=== PATIENT | female | born 1980 | race Caucasian/White ===

== ENCOUNTER 2017-05-20 16:36 | Emergency (ER) | payer OTHER ==
[2017-05-20 17:57] VITALS: BP 111/65; PULSE 99; TEMP 98.5; BMI 23.2
--- NOTE | 2017-05-20 17:57 | PDOC ---
Rapid Medical Evaluation Time Seen by Provider: 05/20/17 17:53 Medical Evaluation: Allergies Allergy/AdvReac Type Severity Reaction Status Date / Time No Known Allergies Allergy Verified 05/20/17 17:54 05/20/17 17:54 I have performed a brief in-person evaluation of this patient. The patient presents with a chief complaint of: sore throat x2 days Pertinent physical exam findings: HEENT: Tonsillar swelling noted. No erythema or exudates noted. No cervical lymphadenopathy. PULM: Lungs CTAB I have ordered the following: influenza, rapid strep The patient will proceed to the ED for further evaluation. Discharge Disposition - Diagnosis Sore throat - Referrals - Patient Instructions - Post Discharge Activity
--- NOTE | 2017-05-20 18:40 | PDOC ---
History of Present Illness - General Chief Complaint: Sore Throat Stated Complaint: COUGHING Time Seen by Provider: 05/20/17 17:53 History Source: Patient - History of Present Illness Timing/Duration: reports: yesterday Associated Symptoms: reports: cough, sore throat Past History - Past Medical History Allergies/Adverse Reactions: Allergies Allergy/AdvReac Type Severity Reaction Status Date / Time No Known Allergies Allergy Verified 05/20/17 17:54 Home Medications: Ambulatory Orders NK [No Known Home Medication] 05/20/17 COPD: No - Suicide/Smoking/Psychosocial Hx Smoking History: Never smoked Review of Systems - Review of Systems Constitutional: No: Chills, Fever HEENTM: Yes: Throat Pain. No: Ear Pain Respiratory: Yes: Cough. No: Shortness of Breath *Physical Exam - Vital Signs Last Vital Signs Temp Pulse Resp BP Pulse Ox 98.5 F 99 H 18 111/65 99 05/20/17 17:54 05/20/17 17:54 05/20/17 17:54 05/20/17 17:54 05/20/17 17:54 - Physical Exam General Appearance: Yes: Appropriately Dressed. No: Apparent Distress HEENT: positive: Normal ENT Inspection, Normal Voice. negative: Pharyngeal Erythema, Tonsillar Exudate Neck: positive: Supple. negative: Lymphadenopathy (R), Lymphadenopathy (L) Respiratory/Chest: positive: Lungs Clear, Normal Breath Sounds. negative: Respiratory Distress Cardiovascular: positive: Regular Rate, S1, S2 Integumentary: positive: Dry, Warm Neurologic: positive: Fully Oriented, Alert, Normal Mood/Affect Medical Decision Making - Medical Decision Making 05/20/17 18:21 37-year-old female, no significant history here with sore throat and dry cough for 2 days. No fever, shortness of breath or ear pain. Daughter at home with similar symptoms. Patient well-appearing and stable with unremarkable exam. Most likely viral, however, rapid strep and flu sent off from triage and pending. Anticipate discharge with supportive treatment 05/20/17 20:02 Rule and strep negative. Discharge with supportive treatment *DC/Admit/Observation/Transfer Diagnosis at time of Disposition: URI (upper respiratory infection) Qualifiers: URI type: unspecified viral URI Qualified Code(s): J06.9 - Acute upper respiratory infection, unspecified - Discharge Dispostion Disposition: HOME Condition at time of disposition: Good - Referrals - Patient Instructions Printed Discharge Instructions: DI for Viral Upper Respiratory Infection -- Adult Print Language: DANISH - Post Discharge Activity
== END 2017-05-20 20:06 | disposition home or self-care (01) ==
LOC: JERFT 16:36
DX: J06.9 Acute upper respiratory infection, unspecified (principal)
CPT/HCPCS: 87070; 87430; 87804; 99281-25

== ENCOUNTER 2020-09-13 06:55 | Emergency (ER) | payer SELFPAY ==
[2020-09-13 07:30] VITALS: BP 117/79; PULSE 70; TEMP 98; BMI 22.2
== END 2020-09-13 07:58 | disposition home or self-care (01) ==
LOC: JER 06:55
DX: H01.001 Unspecified blepharitis right upper eyelid (principal); H00.011 Hordeolum externum right upper eyelid
CPT/HCPCS: 99283-25

== ENCOUNTER 2020-12-31 07:26 | Emergency (ER) | payer OTHER ==
[2020-12-31 07:46] VITALS: BP 116/83; PULSE 93; TEMP 99; BMI 24.2
[2020-12-31] MEDS ORDERED: DEXAMETHASONE LIQUID 0.5 MG/5 ML PO ONE (07:50)
[2020-12-31] MEDS ORDERED: DEXAMETHASONE SOD PHOSPHATE 10 MG/1 ML VIAL ONE (07:53)
== END 2020-12-31 09:00 | disposition home or self-care (01) ==
LOC: JER 07:26
DX: R07.0 Pain in throat (principal)
CPT/HCPCS: 87880; 99283-25; C9803; U0003; U0005